=== PATIENT | male | born 1955 | race Caucasian/White ===

== ENCOUNTER 2016-06-03 11:47 | Emergency (ER) | payer BC, OTHER ==
[2016-06-03 12:03] VITALS: BP 144/87; PULSE 78; RESP 16; TEMP 97.6
--- NOTE | 2016-06-03 12:58 | ED ---
Wound/Laceration HPI - General Chief Complaint: Wound/Laceration Stated Complaint: Finger laceration-[facility] Time Seen by Provider: 06/03/16 12:53 Source: patient, RN notes reviewed Mode of arrival: ambulatory Limitations: no limitations - History of Present Illness Initial Comments: Patient is a 81-year-old male chief complaint of a right distal 5th finger laceration. Patient reports that he was working with his boss and a riya spun and cut his finger. Patient reports that the finger lacerations across the nail. He states he is unsure of his tetanus vaccination is up-to-date. He also reports that he has limited range of motion over the distal finger due to pain. Patient denies any peripheral paresthesias. Patient is right-handed. Patient denies any recent fever, chills, shortness of breath, chest pain, back pain, abdominal pain, nausea vomiting, numbness or tingling, dysuria or hematuria, constipation or diarrhea, headaches or visual changes, or any other current symptoms. - Related Data Home Medications Medication Instructions Recorded Confirmed Metoprolol Succinate (ER) [Toprol 12.5 mg PO DAILY 06/03/16 06/03/16 Xl] Allergies Allergy/AdvReac Type Severity Reaction Status Date / Time No Known Allergies Allergy Verified 06/03/16 14:14 Review of Systems ROS Statement: Those systems with pertinent positive or pertinent negative responses have been documented in the HPI. ROS Other: All systems not noted in ROS Statement are negative. Past Medical History Past Medical History: No Reported History History of Any Multi-Drug Resistant Organisms: None Reported Past Surgical History: No Surgical Hx Reported Past Psychological History: No Psychological Hx Reported Smoking Status: Never smoker Past Alcohol Use History: None Reported Past Drug Use History: None Reported General Exam - General Exam Comments Initial Comments: Patient is a 61-year-old male. He does not appear to be in any acute distress. Limitations: no limitations General appearance: alert, in no apparent distress Head exam: Present: atraumatic, normocephalic, normal inspection Eye exam: Present: normal appearance, PERRL, EOMI. Absent: scleral icterus, conjunctival injection, periorbital swelling ENT exam: Present: normal exam, normal oropharynx, mucous membranes moist, TM's normal bilaterally Neck exam: Present: normal inspection, full ROM. Absent: tenderness, meningismus, lymphadenopathy Respiratory exam: Present: normal lung sounds bilaterally. Absent: respiratory distress, wheezes, rales, rhonchi, stridor Cardiovascular Exam: Present: regular rate, normal rhythm, normal heart sounds. Absent: systolic murmur, diastolic murmur, rubs, gallop, clicks GI/Abdominal exam: Present: soft, normal bowel sounds. Absent: distended, tenderness, guarding, rebound, rigid Extremities exam: Present: normal inspection, full ROM, normal capillary refill. Absent: tenderness, pedal edema, joint swelling, calf tenderness Right Elbow exam: Present: normal inspection, full ROM. Absent: tenderness, swelling , abrasion Forearm Wrist exam: Present: normal inspection, full ROM. Absent: tenderness, swelling, abrasion Hand Wrist exam: Present: tenderness, laceration (1 cm laceration over the distal pinky going towards the nail.). Absent: normal inspection, full ROM, swelling, abrasion Neuro motor exam: Present: wrist extension intact, thumb opposition intact, thumb IP flexion intact, thumb adduction intact, fingers 2-5 abduction intact Vascular: Present: normal capillary refill Back exam: Present: normal inspection Neurological exam: Present: alert, oriented X3, CN II-XII intact Psychiatric exam: Present: normal affect, normal mood Skin exam: Present: warm, dry, intact, normal color. Absent: rash Course Vital Signs 06/03/16 12:00 Temperature 97.6 F Pulse Rate 78 Respiratory 16 Rate Blood Pressure 144/87 O2 Sat by Pulse 96 Oximetry Medical Decision Making - Medical Decision Making Denis is a 61-year-old male with chief complaint of left distal finger laceration. The laceration does extend through the nail bed. Patient hand was soaked in soapy saline solution. . Patient states x-rays reviewed and shows no evidence of any acute fractures. Patient was updated on tetanus vaccination.Patient distal edge of nail removed and 1 suture placed on the lateral aspect of the finger. I advisd patient to have nail to grow, and to ensure that it does not grow downwards toward the laceration. Patient understands treatment plan and will comply. Patient placed in a finger cot. Return paramters and infection signs discussed. - Radiology Data Radiology results: report reviewed No fracture, dislocation or radiopaque foreign body. Bone mineralization and joint space alignments are maintained. No evidence of fracture dislocation. This was read by Dr. Norman. Disposition Clinical Impression: Nailbed laceration, finger Disposition: HOME SELF-CARE Condition: Good Instructions: Finger Laceration (ED) Additional Instructions: Please return to the emergency room in 5-7 days to have sutures removed. Please leave wound covered for the first 24-48 hours and then leave open to air after that time. Please use clean soap and water to clean the suture area to prevent scabbing over the top of your sutures. Please watch for any signs of infection which may include but not limited to increased pain, swelling, redness, fever or chills. Please return to the emergency room if any signs of infection do occur. Please return to the emergency room for any other concerns or complications. Referrals: Adan Hill MD [Primary Care Provider] - 1-2 days Time of Disposition: 13:47
[2016-06-03] MEDS ORDERED: DIPH,PERTUS(ACELL)TETVAC-LF 0.5 ML VIAL IM ONE (12:59)
--- NOTE | 2016-06-03 13:21 | XR ---
Fifth digit left hand HISTORY: Trauma, laceration 3 views of the fifth digit of the left hand There is no fracture, dislocation, or radiopaque foreign body. Bone mineralization, joint spaces and alignment are maintained. IMPRESSION: No acute fracture or dislocation.
== END 2016-06-03 14:18 | disposition home or self-care (01) ==
LOC: EC 11:47
DX: S61.216A Laceration without foreign body of right little finger without damage to nail, initial encounter (principal); Z23 Encounter for immunization; Z79.899 Other long term (current) drug therapy; W31.89XA Contact with other specified machinery, initial encounter
CPT/HCPCS: 12001; 90471; 90715; 99283

== ENCOUNTER 2016-06-16 07:47 | Day surgery (SDC) | payer BC ==
[2016-06-12 08:30] VITALS: BMI 32.2
[~2016-06-16 07:47] MED LIST: LACTATED RINGERS 1,000 ML IV SCH; LIDOCAINE 1% 20 ML VIAL (10MG/ML) FOR IV START INTRADERMA PRN; PROPOFOL 10 MG/ML 20 ML VIAL IV ONE
[2016-06-16 08:39] VITALS: TEMP 97.9
[2016-06-16 09:42] VITALS: RESP 16
--- NOTE | 2016-06-16 09:47 | P.PCN ---
Date of Procedure: 06/16/16 Procedure(s) Performed: Procedure: Colonoscopy and biopsy and polypectomy. Preoperative diagnosis: Change in bowel habits. Postoperative diagnosis: 1. Sigmoid diverticulosis with nonspecific mucosal changes in the vicinity of diverticular orifices in the sigmoid raising the possibility of possible prior bout of diverticulitis. 2. Small/diminutive polyps in the transverse colon snared but no large polyps or cancer. Preparation: HalfLytely prep. Sedation: Was provided by anesthesia. Brief clinical history: The patient is a 61-year-old male who is referred for this evaluation because of recent changes in bowel habits mostly in the form loose stools. No bleeding or other complaints or anemia. The patient has had no prior colonoscopy and there is no family history of colon cancer. Procedure: With the patient on his left lateral decubitus position and after informed consent and adequate sedation, the perianal area was inspected and it did not show any fissures or fistulas. There were no masses felt on digital rectal examination. The Olympus CFQ 160L video colonoscope was then inserted in the rectum in the usual fashion and advanced to the cecum. There were 3 small/diminutive polyps in the transverse colon which were snared and retrieved I suction but there were no large polyps or cancer. There were a few diverticular orifices seen scattered in the sigmoid with some nonspecific mucosal changes in the vicinity of diverticular orifices raising the possibility of prior bout of diverticulitis. I obtained biopsies from the sigmoid then the endoscope was retroflexed in the rectum before it was withdrawn. The patient tolerated the procedure well. Plan: The patient was reassured. Will await biopsy results. He will follow up with you as planned and I anticipate repeating his colonoscopy in 5 years.
[2016-06-16 10:29] VITALS: BP 126/72; PULSE 88
== END 2016-06-16 10:29 | disposition home or self-care (01) ==
LOC: ORWHC2ENDO 07:47
DX: K51.40 Inflammatory polyps of colon without complications (principal); K52.9 Noninfective gastroenteritis and colitis, unspecified; K57.30 Diverticulosis of large intestine without perforation or abscess without bleeding; I10 Essential (primary) hypertension; Z79.899 Other long term (current) drug therapy
CPT/HCPCS: 88305; 45385; 45380; J2704

== ENCOUNTER 2017-09-14 07:17 | Emergency (ER) | payer BC ==
[2017-09-14 07:21] VITALS: BP 143/80; PULSE 73; RESP 18; TEMP 97.9
[2017-09-14] MEDS ORDERED: DIAZEPAM 5 MG/ML 2 ML INJ IM ONE (07:32)
[2017-09-14] MEDS ORDERED: KETOROLAC 60 MG/2 ML VIAL IM STA (07:32)
--- NOTE | 2017-09-14 07:34 | ED ---
General Adult HPI - General Chief complaint: Back Pain/Injury Stated complaint: Back Pain Time Seen by Provider: 09/14/17 07:20 Source: patient, RN notes reviewed Mode of arrival: wheelchair Limitations: no limitations - History of Present Illness Initial comments: This is a 62-year-old male who presents emergency Department with lower back pain. Patient states yesterday doing quite a bit of lifting and then he sat down on the edge of his bed to pull off his pants and he had significant pain in his lower back. Patient denies any radiation of the pain. Patient states the pain stays in his lower back. Patient states the left both of his legs without problem. Patient denies any numbness or weakness. Patient denies any perineum numbness. Patient denies any urinary incontinence or urinary retention. Patient states he has had this happen in the past and has resolved on its own. Patient states it was so much pain with movement he was unable to go to work. - Related Data Home Medications Medication Instructions Recorded Confirmed Lisinopril [Prinivil] 5 mg PO DAILY 09/14/17 09/14/17 Naproxen Sodium [Aleve] 220 mg PO DAILY PRN 09/14/17 09/14/17 Previous Rx's Medication Instructions Recorded Cyclobenzaprine [Flexeril] 10 mg PO TID #20 tab 09/14/17 Ibuprofen [Motrin] 600 mg PO Q6HR PRN #20 tab 09/14/17 Allergies Allergy/AdvReac Type Severity Reaction Status Date / Time No Known Allergies Allergy Verified 09/14/17 07:53 Review of Systems ROS Statement: Those systems with pertinent positive or pertinent negative responses have been documented in the HPI. ROS Other: All systems not noted in ROS Statement are negative. Past Medical History Past Medical History: No Reported History History of Any Multi-Drug Resistant Organisms: None Reported Past Surgical History: No Surgical Hx Reported Past Psychological History: No Psychological Hx Reported Smoking Status: Never smoker Past Alcohol Use History: None Reported Past Drug Use History: None Reported General Exam - General Exam Comments Initial Comments: GENERAL Patient is well-developed and well-nourished. Patient is in mild distress. EYES Patient's pupils are equal and round. Extraocular motion is intact SKIN Unremarkable NEURO The patient is alert and oriented 3. Patient has no numbness or weakness. Patient has normal straight leg raise bilaterally up to 90. Patient has normal perineum sensation. PYSCH Patient has normal interpersonal interactions. MUSCULOSKELETAL Patient's full range of motion of all 4 extremities Limitations: no limitations Course Vital Signs 09/14/17 07:19 Temperature 97.9 F Pulse Rate 73 Respiratory 18 Rate Blood Pressure 143/80 O2 Sat by Pulse 99 Oximetry Medical Decision Making - Medical Decision Making Lumbosacral spine x-ray shows no acute abnormality. I gave the patient shot of Toradol and Valium. I reevaluated the patient he was feeling better after he received his shots. Disposition Clinical Impression: Strain of lumbar region Disposition: HOME SELF-CARE Instructions: Acute Low Back Pain (ED) Additional Instructions: Patient should return to the emergency department if there is any worsening or new symptoms such as numbness or weakness or any problems with urination. Prescriptions: Cyclobenzaprine [Flexeril] 10 mg PO TID #20 tab Ibuprofen [Motrin] 600 mg PO Q6HR PRN #20 tab PRN Reason: For pain Is patient prescribed a controlled substance at d/c from ED?: No Referrals: Adan Hill MD [Primary Care Provider] - 1-2 days Time of Disposition: 08:03
--- NOTE | 2017-09-14 08:08 | XR ---
EXAMINATION TYPE: XR lumbosacral spine min 4V DATE OF EXAM: 09/14/2017 CLINICAL HISTORY: Back pain since Thursday TECHNIQUE: Frontal, lateral, and oblique images of the lumbar spine are obtained. COMPARISON: None FINDINGS: There are 5 lumbar type vertebral bodies identified. The lumbar spine shows satisfactory alignment without evidence of acute fracture or dislocation. Vertebral body heights and disk space he ights are within normal limits. The oblique images appear within normal limits. Minimal degenerativ e changes of the lumbar spine are displayed as small anterior osteophytes, minimal endplate sclerosis and facet arthropathy at L4-L5. Minimal atherosclerosis is seen of the abdominal aorta. The overlyin g soft tissue appears unremarkable. IMPRESSION: No acute fracture or dislocation is seen in the lumbar spine. Mild degenerative changes of the lumbar spine.
== END 2017-09-14 08:33 | disposition home or self-care (01) ==
LOC: EC 07:17
DX: S39.012A Strain of muscle, fascia and tendon of lower back, initial encounter (principal); Z79.899 Other long term (current) drug therapy; X50.9XXA Other and unspecified overexertion or strenuous movements or postures, initial encounter
CPT/HCPCS: 72110; 99283; 96372 ×2; J3360; J1885

== ENCOUNTER → 2023-07-17 | Outpatient (CLI) | payer MEDICARE ==
--- NOTE | 2023-07-18 12:47 | CA ---
Transthoracic Echo Report Name: Hugh Echevarria Age: 68 Gender: M : 1955 Exam Date: 07/17/2023 13:18 Exam Location: [facility] Ht (in): 71 Wt (lb): 221 Ordering Physician: Yonas Hill MD Attending/Referring Phys: Yonas Hill MD Complaint Evaluation Supervisor Charmaine Cladwell RDCS Procedure CPT: Indications: I42.9 cardiomyopathy Cardiac Hx: Technical Quality: Fair Contrast 1: Total Dose (mL): Contrast 2: Total Dose (mL): MEASUREMENTS (Male / Female) Normal Values 2D ECHO LV Diastolic Diameter PLAX 4.3 cm 4.2 - 5.9 / 3.9 - 5.3 cm LV Systolic Diameter PLAX 2.4 cm IVS Diastolic Thickness 1.2 cm 0.6 - 1.0 / 0.6 - 0.9 cm LVPW Diastolic Thickness 1.3 cm 0.6 - 1.0 / 0.6 - 0.9 cm LV Relative Wall Thickness 0.6 RV Internal Dim ED PLAX 4.1 cm LA Volume 89.2 cm??? 18 - 58 / 22 - 52 cm??? LA Volume Index 39.3 cm???/m??? 16 - 28 cm???/m??? M-MODE Aortic Root Diameter MM 3.2 cm LA Systolic Diameter MM 5.5 cm LA Ao Ratio MM 1.7 AV Cusp Separation MM 2.3 cm DOPPLER AV Peak Velocity 125.8 cm/s AV Peak Gradient 6.3 mmHg AV Mean Velocity 85.8 cm/s AV Mean Gradient 3.4 mmHg AV Velocity Time Integral 24.5 cm LVOT Peak Velocity 125.3 cm/s LVOT Peak Gradient 6.3 mmHg LVOT Velocity Time Integral 23.9 cm MV Peak Velocity 131.8 cm/s MV Peak Gradient 7.0 mmHg MV Mean Velocity 78.8 cm/s MV Mean Gradient 2.9 mmHg MV Velocity Time Integral 39.0 cm MV Area PHT 3.6 cm??? MR Peak Velocity 538.7 cm/s MR Peak Gradient 116.1 mmHg Mitral E Point Velocity 111.8 cm/s Mitral A Point Velocity 114.3 cm/s Mitral E to A Ratio 1.0 MV Deceleration Time 213.6 ms MV E' Velocity 9.2 cm/s Mitral E to MV E' Ratio 12.1 TR Peak Velocity 254.6 cm/s TR Peak Gradient 25.9 mmHg Right Atrial Pressure 15.0 mmHg Pulmonary Artery Systolic Pressu 40.9 mmHg Right Ventricular Systolic Press 40.9 mmHg FINDINGS Left Ventricle Mildly increased left ventricular wall thickness. Left ventricular cavity size normal. Normal left ventricular systolic function with no obvious regional wall motion abnormalities. Left ventricular ejection fraction is estimated at 55-60 %. Grade 1 diastolic dysfunction. Right Ventricle Right ventricular dilatation. Mild pulmonary hypertension. Right Atrium Normal right atrial size. Left Atrium Moderately increased left atrial volume. Moderately increased left atrial area. Mitral Valve Structurally normal mitral valve. [id number] mitral regurgitation. Centrally directed mitral regurgitation jet. Aortic Valve Trileaflet aortic valve. No aortic valve stenosis or regurgitation. Tricuspid Valve Structurally normal tricuspid valve. Mild tricuspid regurgitation. Pulmonic Valve Structurally normal pulmonic valve. Pericardium No pericardial effusion. Aorta Normal size aortic root and proximal ascending aorta. CONCLUSIONS Normal LV function Moderate left atrial enlargement Moderate to severe mitral regurgitation Previewed by: Dr. Juancho Zuñiga MD (Electronically Signed) Final Date: 18 July 2023 12:47
== END | disposition home or self-care (01) ==
LOC: RADECHMAIN 12:52
PROVIDERS: ATTEND Family Medicine
DX: I34.0 Nonrheumatic mitral (valve) insufficiency (principal); I42.9 Cardiomyopathy, unspecified; I51.7 Cardiomegaly
CPT/HCPCS: 93306

== ENCOUNTER 2024-09-03 09:45 | Emergency (ER) | payer MEDICARE ==
[2024-09-03 10:07] VITALS: TEMP 97.9
[2024-09-03] MEDS: KETOROLAC 15 MG/ML 1 ML VIAL IM STA (10:25)
[2024-09-03] MEDS: DEXAMETHASONE SOD PHOSPHATE 10 MG/ML 1 ML VIAL IM STA (10:25)
[2024-09-03] MEDS: LIDOCAINE 4% PATCH TOPICAL ONE (10:29)
--- NOTE | 2024-09-03 10:45 | XR ---
EXAMINATION TYPE: XR lumbar spine 2 or 3V DATE OF EXAM: 09/03/2024 CLINICAL INDICATION: Male, 69 years old with history of Pain, pain TECHNIQUE: Frontal and lateral images of the lumbar spine are obtained. COMPARISON: Lumbar spine x-ray 2012 FINDINGS: There are 5 lumbar type vertebral bodies redemonstrated. The lumbar spine shows slight gr rohit 1 retrolisthesis L4 on L5 without evidence of acute fracture or dislocation. Vertebral body heigh ts and disk space heights are within normal limits. Mild overlying arterial vascular calcification is redemonstrated. IMPRESSION: As above. [facility], , 09/03/2024 10:43 AM
--- NOTE | 2024-09-03 10:57 | ED ---
Back Pain HPI - General Chief Complaint: Back Pain/Injury Stated Complaint: back pain Time Seen by Provider: 09/03/24 10:10 Source: patient, RN notes reviewed Mode of arrival: ambulatory Limitations: no limitations - History of Present Illness Initial Comments: This is a 69-year-old male who presents to the emergency department for right lower back pain. States that it started a couple of days ago. He has had similar problems in the past that have been attributed to musculoskeletal issues. However, states that he started riding his motorcycle again and it started back up. Denies any loss of bowel/bladder control or saddle anesthesia. He has some pain radiating down the leg. MD Complaint: back pain - Related Data Home Medications Medication Instructions Recorded Confirmed Naproxen Sodium [Aleve] 220 mg PO DAILY PRN 09/14/17 09/14/17 lisinopriL [Prinivil] 5 mg PO DAILY 09/14/17 09/14/17 Previous Rx's Medication Instructions Recorded Cyclobenzaprine [Flexeril] 10 mg PO TID #20 tab 09/14/17 Ibuprofen [Motrin] 600 mg PO Q6HR PRN #20 tab 09/14/17 Ketorolac [Toradol] 10 mg PO Q6HR PRN #15 tab 09/03/24 Lidocaine 5% Patch [Lidoderm 5% 1 patch TOPICAL DAILY PRN #30 patch 09/03/24 Patch] predniSONE 50 mg PO DAILY 5 Days #5 tab 09/03/24 Allergies Allergy/AdvReac Type Severity Reaction Status Date / Time No Known Allergies Allergy Verified 09/03/24 10:07 Review of Systems ROS Statement: Those systems with pertinent positive or pertinent negative responses have been documented in the HPI. ROS Other: All systems not noted in ROS Statement are negative. Past Medical History Past Medical History: Hypertension History of Any Multi-Drug Resistant Organisms: None Reported Past Surgical History: No Surgical Hx Reported Past Psychological History: No Psychological Hx Reported Smoking Status: Former smoker Past Alcohol Use History: None Reported Past Drug Use History: None Reported General Exam Limitations: no limitations General appearance: alert, in no apparent distress Head exam: Present: atraumatic, normocephalic, normal inspection Respiratory exam: Present: normal lung sounds bilaterally. Absent: respiratory distress, wheezes, rales, rhonchi, stridor Cardiovascular Exam: Present: regular rate, normal rhythm Back exam: Present: other (Tenderness to palpation over the right lower back) Neurological exam: Present: alert, oriented X3, CN II-XII intact Psychiatric exam: Present: normal affect, normal mood Skin exam: Present: warm, dry, intact, normal color. Absent: rash Course Vital Signs 09/03/24 09/03/24 10:03 11:20 Temperature 97.9 F 97.9 F Pulse Rate 69 76 Respiratory 18 20 Rate Blood Pressure 131/81 121/73 O2 Sat by Pulse 99 95 Oximetry Medical Decision Making - Medical Decision Making This is a 69-year-old male who presents to the emergency department for back pain. Was pt. sent in by a medical professional or institution? @ -No Did you speak to anyone other than the patient for history? @ -No Did you review nursing and triage notes? @ -Yes, and I agree, it is accurate with regards to the patient's symptoms. Were old charts reviewed? @ -No Differential Diagnosis? @ -Differential Back Pain: Strain, zoster, cauda equina syndrome, epidural abscess, vertebral osteomyelitis, discitis, fracture, subluxation, disc herniation, DJD, spinal stenosis, dissection, AAA, pancreatitis, peptic ulcer disease, pyelonephritis, kidney stone, this is not meant to be an all-inclusive list. EKG interpreted by me (3pts min.)? @ -Not obtained X-rays interpreted by me (1pt min.)? @ -X-ray of the lumbar spine obtained. My interpretation identifies no acute fractures. CT interpreted by me (1pt min.)? @ -Not obtained U/S interpreted by me (1pt. min.)? @ -Not obtained What testing was considered but not performed? (CT, X-rays, U/S, labs)? Why? @ -None What meds were considered but not given? Why? @ -None Did you discuss the management of the patient with other professionals? @ -No Did you reconcile home meds? @ -No Was smoking cessation discussed for >3mins.? @ -No Was critical care preformed (if so, how long)? @ -No Were there social determinants of health that impacted care today? How? (Homelessness, low income, unemployed, alcoholism, drug addiction, transportation, low edu. Level, literacy, decrease access to med. care, f[facility], rehab)? @ -No Was there de-escalation of care discussed even if they declined? (Discuss DNR or withdrawal of care, Hospice)? @ -No What co-morbidities impacted this encounter? (DM, HTN, Smoking, COPD, CAD, Cancer, CVA, Hep., AIDS, mental health diagnosis, sleep apnea, morbid obesity)? @ -None Was patient admitted / discharged? @ -Discharged. X-ray of the lumbar spine obtained revealing slight grade 1 retrolithiasis without other acute process. Symptoms likely related to a lumbar strain. Pain treated in the emergency department. Prescription for 5-day course of prednisone provided with dosing instructions reviewed along with Toradol and lidocaine patches. He does have have muscle relaxers he can take at home if needed as well. Patient discharged home in stable condition. Case discussed with ED attending Dr. Deleon. Return precautions reviewed in depth, the patient is instructed to return to the emergency department with any new, worsening, or concerning symptoms. Patient verbalized understanding. Undiagnosed new problem with uncertain prognosis? @ -None Drug Therapy requiring intensive monitoring for toxicity (Heparin, Nitro, Insulin, Cardizem)? @ -None Were any procedures done? @ -None Diagnosis/symptom? @ -Lumbar strain Acute, or Chronic, or Acute on Chronic? @ -Acute Uncomplicated (without systemic symptoms) or Complicated (systemic symptoms)? @ -Uncomplicated Side effects of treatment? @ -None Exacerbation, Progression, or Severe Exacerbation] @ -Not applicable Poses a threat to life or bodily function? @ -No - Radiology Data Radiology results: report reviewed, image reviewed Disposition Clinical Impression: Lumbar back sprain, Retrolisthesis of vertebrae Disposition: HOME SELF-CARE Instructions (If sedation given, give patient instructions): Low Back Strain (ED), Acute Low Back Pain (ED) Additional Instructions: Return to the emergency department with any new, worsening, or concerning symptoms. Take the prednisone daily for 5 days. Take the Toradol with Tylenol as needed for pain relief. If you choose to take the Toradol, do not take any other anti-inflammatories such as ibuprofen, take one or the other. You can also apply the lidocaine patches daily. Follow up with your primary care provider in 1-2 days. Prescriptions: Lidocaine 5% Patch [Lidoderm 5% Patch] 1 patch TOPICAL DAILY PRN #30 patch PRN Reason: Pain predniSONE 50 mg PO DAILY 5 Days #5 tab Ketorolac [Toradol] 10 mg PO Q6HR PRN #15 tab PRN Reason: Pain Is patient prescribed a controlled substance at d/c from ED?: No Referrals: Yonas Hill MD [Primary Care Provider] - 1-2 days Time of Disposition: 11:07
[2024-09-03 11:21] VITALS: BP 121/73; PULSE 76; RESP 20
== END 2024-09-03 11:21 | disposition home or self-care (01) ==
LOC: EC 09:45
DX: S33.5XXA Sprain of ligaments of lumbar spine, initial encounter (principal); S39.012A Strain of muscle, fascia and tendon of lower back, initial encounter; M43.16 Spondylolisthesis, lumbar region; Z87.891 Personal history of nicotine dependence; X58.XXXA Exposure to other specified factors, initial encounter
CPT/HCPCS: 72100; 99283; 96372 ×2; J1100; J1885

== ENCOUNTER 2024-10-08 08:51 | Emergency (ER) | payer MEDICARE ==
[2024-10-08 09:02] VITALS: BP 145/70; PULSE 70; RESP 18; TEMP 97.9
--- NOTE | 2024-10-08 09:25 | ED ---
General Adult HPI - General Chief complaint: Back Pain/Injury Stated complaint: Back Pain Time Seen by Provider: 10/08/24 09:03 Source: patient, RN notes reviewed, old records reviewed Mode of arrival: ambulatory Limitations: no limitations - History of Present Illness Initial comments: 69-year-old male with acute on chronic back pain. Patient states he has had low back issues for many years. He was seen here 1 month ago and states he received steroid which did significantly improve his pain. He denies bowel or bladder incontinence. He denies pain numbness or tingling to the lower extremities. Denies abdominal pain chest pain or fever. - Related Data Home Medications Medication Instructions Recorded Confirmed Naproxen Sodium [Aleve] 220 mg PO DAILY PRN 09/14/17 09/14/17 lisinopriL [Prinivil] 5 mg PO DAILY 09/14/17 09/14/17 Previous Rx's Medication Instructions Recorded Cyclobenzaprine [Flexeril] 10 mg PO TID #20 tab 09/14/17 Ibuprofen [Motrin] 600 mg PO Q6HR PRN #20 tab 09/14/17 Ketorolac [Toradol] 10 mg PO Q6HR PRN #15 tab 09/03/24 Lidocaine 5% Patch [Lidoderm 5% 1 patch TOPICAL DAILY PRN #30 patch 09/03/24 Patch] predniSONE 50 mg PO DAILY 5 Days #5 tab 09/03/24 methylPREDNISolone Dose Pack 4 mg PO DIRECTED #21 packet 10/08/24 [Medrol Dose Pack] Allergies Allergy/AdvReac Type Severity Reaction Status Date / Time No Known Allergies Allergy Verified 10/08/24 09:02 Review of Systems ROS Statement: Those systems with pertinent positive or pertinent negative responses have been documented in the HPI. ROS Other: All systems not noted in ROS Statement are negative. Past Medical History Past Medical History: Hypertension History of Any Multi-Drug Resistant Organisms: None Reported Past Surgical History: No Surgical Hx Reported Past Psychological History: No Psychological Hx Reported Smoking Status: Former smoker Past Alcohol Use History: None Reported Past Drug Use History: None Reported General Exam Limitations: no limitations General appearance: alert, in no apparent distress Head exam: Present: atraumatic, normocephalic Eye exam: Present: normal appearance, PERRL ENT exam: Present: normal exam Neck exam: Present: normal inspection. Absent: tenderness, meningismus Respiratory exam: Present: normal lung sounds bilaterally. Absent: respiratory distress, wheezes Cardiovascular Exam: Present: regular rate, normal rhythm GI/Abdominal exam: Present: soft. Absent: distended, tenderness, guarding Extremities exam: Present: normal inspection, normal capillary refill. Absent: pedal edema, calf tenderness Back exam: Present: paraspinal tenderness Neurological exam: Present: alert, oriented X3, CN II-XII intact. Absent: motor sensory deficit Psychiatric exam: Present: normal affect, normal mood Skin exam: Present: warm, dry, intact. Absent: cyanosis, diaphoretic Course Vital Signs 10/08/24 09:00 Temperature 97.9 F Pulse Rate 70 Respiratory 18 Rate Blood Pressure 145/70 O2 Sat by Pulse 98 Oximetry Medical Decision Making - Medical Decision Making Was pt. sent in by a medical professional or institution (, PA, TAX PREPARER, urgent care, hospital, or skilled nursing...) When possible be specific @ -No Did you speak to anyone other than the patient for history (EMS, parent, family, police, friend...)? What history was obtained from this source @ -No Did you review nursing and triage notes (agree or disagree)? Why? @ -I reviewed and agree with nursing and triage notes Were old charts reviewed (outside hosp., previous admission, EMS record, old EKG, old radiological studies, urgent care reports/EKG's, skilled nursing records)? Report findings @ -No old charts were reviewed Differential Back Pain: Strain, zoster, cauda equina syndrome, epidural abscess, vertebral osteomyelitis, discitis, fracture, subluxation, disc herniation, DJD, spinal stenosis, dissection, AAA, pancreatitis, peptic ulcer disease, pyelonephritis, kidney stone, this is not meant to be an all-inclusive list. EKG interpreted by me (3pts min.). @ -As above X-rays interpreted by me (1pt min.). @ -None done CT interpreted by me (1pt min.). @ -None done U/S interpreted by me (1pt. min.). @ -None done What testing was considered but not performed or refused? (CT, X-rays, U/S, labs)? Why? @ -None What meds were considered but not given or refused? Why? @ -None Did you discuss the management of the patient with other professionals (professionals i.e. , PA, TAX PREPARER, lab, RT, psych nurse, manager social, route specialist, teacher, environmental compliance officer, director of casework department)? Give summary @ -No Was smoking cessation discussed for >3mins.? @ -No Was critical care preformed (if so, how long)? @ -No Were there social determinants of health that impacted care today? How? (Jennifer elessness, low income, unemployed, alcoholism, drug addiction, transportation, low edu. Level, literacy, decrease access to med. care, half-way, rehab)? @ -No Was there de-escalation of care discussed even if they declined (Discuss DNR or withdrawal of care, Hospice)? DNR status @ -No What co-morbidities impacted this encounter? (DM, HTN, Smoking, COPD, CAD, Cancer, CVA, ARF, Chemo, Hep., AIDS, mental health diagnosis, sleep apnea, morbid obesity)? @ -Chronic back pain Was patient admitted / discharged? Hospital course, mention meds given and route, prescriptions, significant lab abnormalities, going to OR and other pertinent info. @ -69-year-old male with acute on chronic back pain. No red flag symptoms. Patient well-appearing. Patient had not seen orthopedic surgery given the recurrence of this I do recommend he follows with orthospine. He states that previously steroids helped significantly. He is given a shot of Decadron and put on a Medrol Dosepak. Stable for discharge. Undiagnosed new problem with uncertain prognosis? @ -No Drug Therapy requiring intensive monitoring for toxicity (Heparin, Nitro, Insulin, Cardizem)? @ -No Were any procedures done? @ -No Diagnosis/symptom? @ -Back pain Acute, or Chronic, or Acute on Chronic? @ -[Acute on chronic Uncomplicated (without systemic symptoms) or Complicated (systemic symptoms)? @ -Default Side effects of treatment? @ -No Exacerbation, Progression, or Severe Exacerbation? @ -No Poses a threat to life or bodily function? How? (Chest pain, [place], [place], pneumonia, PE, COPD, DKA, ARF, appy, cholecystitis, CVA, Diverticulitis, Homicidal, Suicidal, threat to staff... and all critical care pts) @ -No Disposition Clinical Impression: Strain of lumbar region Disposition: HOME SELF-CARE Condition: Fair Instructions (If sedation given, give patient instructions): Acute Low Back Pain (ED) Prescriptions: methylPREDNISolone Dose Pack [Medrol Dose Pack] 4 mg PO DIRECTED #21 packet Is patient prescribed a controlled substance at d/c from ED?: No Referrals: Yonas Hill MD [Primary Care Provider] - 1-2 days Vladimir Orozco DO [Doctor of Osteopathic Medicine] - 1-2 days Time of Disposition: 09:40
[2024-10-08] MEDS: DEXAMETHASONE SOD PHOSPHATE 10 MG/ML 1 ML VIAL IM STA (09:50)
== END 2024-10-08 09:50 | disposition home or self-care (01) ==
LOC: EC 08:51
DX: S39.012A Strain of muscle, fascia and tendon of lower back, initial encounter (principal); Z87.891 Personal history of nicotine dependence; X58.XXXA Exposure to other specified factors, initial encounter
CPT/HCPCS: 99283; 96372; J1100

== ENCOUNTER 2024-10-15 08:37 | Emergency (ER) | payer MEDICARE ==
--- NOTE | 2024-10-15 09:19 | ED ---
URI HPI - General Chief Complaint: Upper Respiratory Infection Stated Complaint: ENT Time Seen by Provider: 10/15/24 08:41 Source: patient, RN notes reviewed Mode of arrival: ambulatory Limitations: no limitations - History of Present Illness Initial Comments: This is a 69-year-old male who presents to the emergency department for coughing and congestion. States that it started 2 days ago. Cough is mildly productive. Also reports right ear pain. Denies any chest pain or shortness of breath. Unsure if he has had any fevers. Denies any sick contacts. He did try [id number] nasal spray and cough medication without any relief. - Related Data Home Medications Medication Instructions Recorded Confirmed Naproxen Sodium [Aleve] 220 mg PO DAILY PRN 09/14/17 09/14/17 lisinopriL [Prinivil] 5 mg PO DAILY 09/14/17 09/14/17 Previous Rx's Medication Instructions Recorded Cyclobenzaprine [Flexeril] 10 mg PO TID #20 tab 09/14/17 Ibuprofen [Motrin] 600 mg PO Q6HR PRN #20 tab 09/14/17 Ketorolac [Toradol] 10 mg PO Q6HR PRN #15 tab 09/03/24 Lidocaine 5% Patch [Lidoderm 5% 1 patch TOPICAL DAILY PRN #30 patch 09/03/24 Patch] predniSONE 50 mg PO DAILY 5 Days #5 tab 09/03/24 methylPREDNISolone Dose Pack 4 mg PO DIRECTED #21 packet 10/08/24 [Medrol Dose Pack] Benzonatate [Tessalon Perle] 200 mg PO TID PRN #30 capsule 10/15/24 Fluticasone Nasal [place] [Flonase 2 spray EA NOSTRIL DAILY #16 gm 10/15/24 Nasal [place]] Nirmatrelvir/Ritonavir [Paxlovid 1 pack PO BID 5 Days #30 tab 10/15/24 300-100 mg Dose Pack] Allergies Allergy/AdvReac Type Severity Reaction Status Date / Time No Known Allergies Allergy Verified 10/15/24 08:41 Review of Systems ROS Statement: Those systems with pertinent positive or pertinent negative responses have been documented in the HPI. ROS Other: All systems not noted in ROS Statement are negative. Past Medical History Past Medical History: Hypertension History of Any Multi-Drug Resistant Organisms: None Reported Past Surgical History: No Surgical Hx Reported Past Psychological History: No Psychological Hx Reported Smoking Status: Former smoker Past Alcohol Use History: None Reported Past Drug Use History: None Reported General Exam Limitations: no limitations General appearance: alert, in no apparent distress Head exam: Present: atraumatic, normocephalic, normal inspection ENT exam: Present: TM's normal bilaterally, normal external ear exam Respiratory exam: Present: normal lung sounds bilaterally. Absent: respiratory distress, wheezes, rales, rhonchi, stridor Cardiovascular Exam: Present: regular rate, normal rhythm Neurological exam: Present: alert, oriented X3, CN II-XII intact Psychiatric exam: Present: normal affect, normal mood Skin exam: Present: warm, dry, intact, normal color. Absent: rash Course Vital Signs 10/15/24 10/15/24 08:39 10:10 Temperature 98.4 F 98.6 F Pulse Rate 73 76 Respiratory 20 20 Rate Blood Pressure 141/73 136/80 O2 Sat by Pulse 99 99 Oximetry Medical Decision Making - Medical Decision Making This is a 69-year-old male who presents to the emergency department for coughing and congestion. Was pt. sent in by a medical professional or institution? @ -No Did you speak to anyone other than the patient for history? @ -No Did you review nursing and triage notes? @ -Yes, and I agree, it is accurate with regards to the patient's symptoms. Were old charts reviewed? @ -No Differential Diagnosis? @ -Differential Cough: Influenza, Covid, RSV, croup, allergic rhinitis, GERD, pneumonia, bronchitis, COPD, viral pharyngitis, streptococcal pharyngitis, this is not meant to be an all-inclusive list. EKG interpreted by me (3pts min.)? @ -Not obtained X-rays interpreted by me (1pt min.)? @ -Chest x-ray obtained, my interpretation identifies no localized consolidations or infiltrates. CT interpreted by me (1pt min.)? @ -Not obtained U/S interpreted by me (1pt. min.)? @ -Not obtain What testing was considered but not performed? (CT, X-rays, U/S, labs)? Why? @ -None What meds were considered but not given? Why? @ -None Did you discuss the management of the patient with other professionals? @ -No Did you reconcile home meds? @ -No Was smoking cessation discussed for >3mins.? @ -No Was critical care preformed (if so, how long)? @ -No Were there social determinants of health that impacted care today? How? (Homelessness, low income, unemployed, alcoholism, drug addiction, transportation, low edu. Level, literacy, decrease access to med. care, intermediate, rehab)? @ -No Was there de-escalation of care discussed even if they declined? (Discuss DNR or withdrawal of care, Hospice)? @ -No What co-morbidities impacted this encounter? (DM, HTN, Smoking, COPD, CAD, Cancer, CVA, Hep., AIDS, mental health diagnosis, sleep apnea, morbid obesity)? @ -HTN Was patient admitted / discharged? @ -Discharged. Patient positive for COVID-19. Influenza and RSV testing negative. Chest x-ray reveals no acute process. Discussed the option of Paxlovid with the patient and he requested to proceed. This was prescribed along with Tessalon Perles and Flonase nasal spray. Also advised [id number] Sudafed to help with his congestion. Patient discharged home in stable condition. Case discussed with ED attending Dr. Bhat. Return precautions reviewed in depth, the patient is instructed to return to the emergency department with any new, worsening, or concerning symptoms. Patient verbalized understanding. Undiagnosed new problem with uncertain prognosis? @ -None Drug Therapy requiring intensive monitoring for toxicity (Heparin, Nitro, Insulin, Cardizem)? @ -None Were any procedures done? @ -None Diagnosis/symptom? @ -COVID-19 Acute, or Chronic, or Acute on Chronic? @ -Acute Uncomplicated (without systemic symptoms) or Complicated (systemic symptoms)? @ -Uncomplicated Side effects of treatment? @ -None Exacerbation, Progression, or Severe Exacerbation] @ -Not applicable Poses a threat to life or bodily function? @ -No - Lab Data Lab Results 10/15/24 Range/Units 08:55 Influenza Type A (PCR) Not Detected (Not Detectd) Influenza Type B (PCR) Not Detected (Not Detectd) RSV (PCR) Not Detected (Not Detectd) SARS-CoV-2 (PCR) Detected A (Not Detectd) - Radiology Data Radiology results: report reviewed, image reviewed Disposition Clinical Impression: COVID-19 Disposition: HOME SELF-CARE Instructions (If sedation given, give patient instructions): COVID-19 (Coronavirus Disease 2019) (ED), How to Recover from COVID-19 at Home (ED) Additional Instructions: Return to the emergency department with any new, worsening, or concerning symptoms. Take the Paxlovid as prescribed for 5 days. You can take the Tessalon Perles up to 3 times daily for the cough. Begin using the Flonase nasal spray as 2 sprays in each nostril daily. This will take a couple of days to work, but should start to help with your congestion and ear pain. A dditionally, you can try [id number] decongestants like Sudafed to help with your congestion. Prescriptions: Fluticasone Nasal [place] [Flonase Nasal [place]] 2 spray EA NOSTRIL DAILY #16 gm Nirmatrelvir/Ritonavir [Paxlovid 300-100 mg Dose Pack] 1 pack PO BID 5 Days #30 tab Benzonatate [Tessalon Perle] 200 mg PO TID PRN #30 capsule PRN Reason: Cough Is patient prescribed a controlled substance at d/c from ED?: No Referrals: Yonas Hill MD [Primary Care Provider] - 1-2 days Time of Disposition: 10:01
[2024-10-15] MEDS: PSEUDOEPHEDRINE 12HR 120 MG TABLET.ER PO STA (09:24)
--- NOTE | 2024-10-15 09:29 | XR ---
EXAMINATION TYPE: XR chest 2V DATE OF EXAM: 10/15/2024 9:03 AM COMPARISON: None CLINICAL INDICATION: Male, 69 years old with history of Cough; 10/15/2024 TECHNIQUE: XR chest 2V Frontal and lateral views of the chest. FINDINGS: Lungs/Pleura: There is no evidence of pleural effusion, focal consolidation, or pneumothorax. Pulmonary vascularity: Unremarkable. Heart/mediastinum: Cardiomediastinal silhouette is unremarkable. Musculoskeletal: No acute osseous pathology. IMPRESSION: No acute cardiopulmonary disease/process. [facility], , 10/15/2024 9:27 AM
[2024-10-15 09:41] LABS: RSV Not Detected (Not Detectd)
[2024-10-15 10:17] VITALS: BP 136/80; PULSE 76; RESP 20; TEMP 98.6
== END 2024-10-15 10:11 | disposition home or self-care (01) ==
LOC: EC 08:37
DX: U07.1 COVID-19 (principal); I10 Essential (primary) hypertension; Z87.891 Personal history of nicotine dependence
CPT/HCPCS: 71046; 87636; 99283

== ENCOUNTER 2024-10-21 22:40 | Emergency (ER) | payer MEDICARE ==
[2024-10-21] MEDS: ASPIRIN 81 MG PO STA (23:16)
--- NOTE | 2024-10-21 23:33 | ED ---
General Adult HPI - General Chief complaint: Chest Pain Stated complaint: chest pain Time Seen by Provider: 10/21/24 22:55 Source: patient, RN notes reviewed, old records reviewed Mode of arrival: ambulatory Limitations: no limitations - History of Present Illness Initial comments: 69-year-old male who presents emergency department for chest pain. Patient has a history of heart murmur, hypertension. Follows up with Dr. Wright outpatient. States that he woke up at approximately 9:30 PM and had a pinching sensation over his left chest that was lasting for a fleeting moment. It reoccurred 1 time. Became concerned and wanted to be reevaluated. Currently has no pain. No known palliative or provocative factors. Denies any shortness of breath with it. Recently had a full stress test workup outpatient which was negative according to the patient. No history of cardiac stents or CAD to his knowledge. Presents for further evaluation at this time.Denies any radiation of the pain when it was present. Denies any associative diaphoresis or nausea with it. The pain lasted moments when it was present. - Related Data Home Medications Medication Instructions Recorded Confirmed Naproxen Sodium [Aleve] 220 mg PO DAILY PRN 09/14/17 09/14/17 lisinopriL [Prinivil] 5 mg PO DAILY 09/14/17 09/14/17 Previous Rx's Medication Instructions Recorded Cyclobenzaprine [Flexeril] 10 mg PO TID #20 tab 09/14/17 Ibuprofen [Motrin] 600 mg PO Q6HR PRN #20 tab 09/14/17 Ketorolac [Toradol] 10 mg PO Q6HR PRN #15 tab 09/03/24 Lidocaine 5% Patch [Lidoderm 5% 1 patch TOPICAL DAILY PRN #30 patch 09/03/24 Patch] predniSONE 50 mg PO DAILY 5 Days #5 tab 09/03/24 methylPREDNISolone Dose Pack 4 mg PO DIRECTED #21 packet 10/08/24 [Medrol Dose Pack] Benzonatate [Tessalon Perle] 200 mg PO TID PRN #30 capsule 10/15/24 Fluticasone Nasal [place] [Flonase 2 spray EA NOSTRIL DAILY #16 gm 10/15/24 Nasal [place]] Nirmatrelvir/Ritonavir [Paxlovid 1 pack PO BID 5 Days #30 tab 10/15/24 300-100 mg Dose Pack] Allergies Allergy/AdvReac Type Severity Reaction Status Date / Time No Known Allergies Allergy Verified 10/21/24 22:47 Review of Systems ROS Statement: Those systems with pertinent positive or pertinent negative responses have been documented in the HPI. Review of Systems: CONST: Denies fever EYES: Denies blurry vision ENT: Denies nasal congestion C/V: Denies current chest pain RESP: Denies shortness of breath GI: Denies abdominal pain : Denies dysuria SKIN: Denies rash. MSK: Denies joint pain. NEURO: Denies headache ROS Other: All systems not noted in ROS Statement are negative. Past Medical History Past Medical History: Hypertension History of Any Multi-Drug Resistant Organisms: None Reported Past Surgical History: No Surgical Hx Reported Past Psychological History: No Psychological Hx Reported Smoking Status: Former smoker Past Alcohol Use History: None Reported Past Drug Use History: None Reported General Exam - General Exam Comments Initial Comments: General: Appears in no acute distress. HEAD: Normal with no signs of head trauma. EYES: PERRLA, EOMI, conjunctiva normal, no discharge. ENT: Hearing grossly intact, normal oropharynx. RESPIRATORY: Clear breath sounds bilaterally. No wheezes, rales, or rhonchi. C/V: Regular rate and rhythm. S1 and S2 auscultated, no edema, peripheral pulses 2+ and intact throughout ABD: Abd is soft, nontender, nondistended EXT: Normal range of motion, no obvious deformity SKIN: No rashes or lesions observed on exposed skin. NEURO: Alert and oriented x 4. Cranial nerves II-XII intact. No focal sensory or strength deficits. Limitations: no limitations Course Vital Signs 10/21/24 10/21/24 10/22/24 22:44 23:47 01:00 Temperature 97.9 F Pulse Rate 62 66 57 L Respiratory 18 16 22 Rate Blood Pressure 156/77 155/74 134/57 O2 Sat by Pulse 99 99 97 Oximetry 10/22/24 02:00 Temperature Pulse Rate 58 L Respiratory 17 Rate Blood Pressure 132/65 O2 Sat by Pulse 97 Oximetry Medical Decision Making - Medical Decision Making Was pt. sent in by a medical professional or institution (, PA, WAITSTAFF CAPTAIN, urgent care, hospital, or [facility]...) When possible be specific @ -No Did you speak to anyone other than the patient for history (EMS, parent, family, police, friend...)? What history was obtained from this source @ -No Did you review nursing and triage notes (agree or disagree)? Why? @ -I reviewed and agree with nursing and triage notes Were old charts reviewed (outside hosp., previous admission, EMS record, old EKG, old radiological studies, urgent care reports/EKG's, [facility] records)? Report findings @ -Reviewed echo from July 2023 which showed moderate to severe mitral re gurgitation with corresponding left atrial enlargement. No other acute findings. Differential Diagnosis (chest pain, altered mental status, abdominal pain women, abdominal pain men, vaginal bleeding, weakness, fever, dyspnea, syncope, headache, dizziness, GI bleed, back pain, seizure, CVA, palpatations, mental health, musculoskeletal)? @ -Differential Chest Pain: Stable Angina, Unstable Angina, STEMI, NSTEMI Aortic Dissection, Pneumothorax, Musculoskeletal, Esophageal Spasm GERD, Cholecystitis, Pancreatitis, Zoster, this is not meant to be an all-inclusive list. EKG interpreted by me (3pts min.). @ -As above X-rays interpreted by me (1pt min.). @ -Chest x-ray shows no obvious acute cardiopulmonary process. CT interpreted by me (1pt min.). @ -None done U/S interpreted by me (1pt. min.). @ -None done What testing was considered but not performed or refused? (CT, X-rays, U/S, labs)? Why? @ -None What meds were considered but not given or refused? Why? @ -None Did you discuss the management of the patient with other professionals (professionals i.e. , PA, WAITSTAFF CAPTAIN, lab, RT, psych nurse, social media sr strategy manager, transformer inspector, teacher, aboriginal liaison officer, pillowcase maker)? Give summary @ -No Was smoking cessation discussed for >3mins.? @ -No Was critical care preformed (if so, how long)? @ -No Were there social determinants of health that impacted care today? How? (Homelessness, low income, unemployed, alcoholism, drug addiction, transportation, low edu. Level, literacy, decrease access to med. care, long term, rehab)? @ -No Was there de-escalation of care discussed even if they declined (Discuss DNR or withdrawal of care, Hospice)? DNR status @ -No What co-morbidities impacted this encounter? (DM, HTN, Smoking, COPD, CAD, Cancer, CVA, ARF, Chemo, Hep., AIDS, mental health diagnosis, sleep apnea, morbid obesity)? @ -None Was patient admitted / discharged? Hospital course, mention meds given and route, prescriptions, significant lab abnormalities, going to OR and other pertinent info. @ -Patient presents with chest pain. Currently has no pain but had 2 very brief episodes of a pinching sensation over her this left chest prior to arrival. No history of CAD. Recent stress testing were within normal limits per patient. We do not have access to the results. Discussed with the patient we will obtain cardiac workup. He will be given 3 to 24 mg of aspirin. Vitals are within acceptable limits. Patient was in agreement this plan. EKG x 2 shows no signs of acute ischemia.Chest x-ray unremarkable. Laboratory studies unremarkable including undetectable troponin. On reevaluation, patient remains asymptomatic. Has not had any symptoms since being in the emergency department. Discussed options for disposition for the patient and we both jointly agreed to obtain second troponin. Patient would like to avoid discharge home but he is willing to stay for 3-hour troponin. 3-hour troponin returned undetectable. Throughout his stay he remained asymptomatic. He would like to go home at this time. I do believe this is reasonable. Recommend he follow-up with his spinner box Dr. Aguilar. He was in agreement this plan. Heart score is low at 3. I instructed the patient to follow up with their PCP in the next 1-3 days. I explained that the patient should return to the emergency department if they experience any worsening symptoms. Strict return precautions were discussed with the patient. The patient expressed understanding of these instructions. I answered all questions that the patient had. The patient was discharged home in good condition with their prescriptions and follow up information. Undiagnosed new problem with uncertain prognosis? @ -No Drug Therapy requiring intensive monitoring for toxicity (Heparin, Nitro, Insulin, Cardizem)? @ -No Were any procedures done? @ -No Diagnosis/symptom? @ -Chest pain Acute, or Chronic, or Acute on Chronic? @ -Acute Uncomplicated (without systemic symptoms) or Complicated (systemic symptoms)? @ -Uncomplicated Side effects of treatment? @ -None Exacerbation, Progression, or Severe Exacerbation] @ -No Poses a threat to life or bodily function? @ -Unlikely at this time - Lab Data Result diagrams: 10/21/24 23:04 10/21/24 23:04 Lab Results 10/21/24 10/21/24 10/21/24 Range/Units 23:04 23:04 23:04 WBC 10.20 H (4.50-10.00) 10*3/uL RBC 5.27 (4.40-5.60) 10*6/uL Hgb 15.5 (13.0-17.0) g/dL Hct 44.6 (39.6-50.0) % MCV 84.6 (80.0-97.0) fL MCH 29.4 (27.0-32.0) pg MCHC 34.8 (32.0-37.0) g/dL Plt Count 213 (140-440) 10*3/uL MPV 8.6 L (9.5-12.2) fL Immature Gran % (Auto) 1.1 % Neutrophils % 68.9 % Lymphocytes % 16.0 % Monocytes % 11.0 % Eosinophils % 2.1 % Basophils % 0.9 % Immature Gran # 0.11 H (0.00-0.04) 10*3/uL Neutrophils # 7.04 (1.80-7.70) 10*3/uL Lymphocytes # 1.63 (0.90-5.00) 10*3/uL Monocytes # 1.12 H (0.20-1.00) 10*3/uL Eosinophils # 0.21 (0.04-0.35) 10*3/uL Basophils # 0.09 (0.00-0.10) 10*3/uL PT 10.7 (10.0-12.5) sec INR 1.0 (<1.2) APTT 23.6 (22.0-30.0) sec Sodium 136 L (137-145) mmol/L Potassium 4.1 (3.5-5.1) mmol/L Chloride 103 (98-107) mmol/L Carbon Dioxide 22 (22-30) mmol/L Anion Gap 11 mmol/L BUN 23 H (9-20) mg/dL Creatinine 0.75 (0.66-1.25) mg/dL Est GFR (CKD-EPI)AfAm >90 (>60 ml/min/1.73 sqM) Est GFR (CKD-EPI)NonAf >90 (>60 ml/min/1.73 sqM) Glucose 101 H (74-99) mg/dL Calcium 9.2 (8.4-10.2) mg/dL Magnesium 1.9 (1.6-2.3) mg/dL Total Bilirubin 0.5 (0.2-1.3) mg/dL AST 19 (17-59) U/L ALT 13 (4-49) U/L Alkaline Phosphatase 81 (38-126) U/L Troponin I (0.000-0.034) ng/mL Total Protein 6.4 (6.3-8.2) g/dL Albumin 3.9 (3.5-5.0) g/dL 10/21/24 10/22/24 Range/Units 23:04 01:27 WBC (4.50-10.00) 10*3/uL RBC (4.40-5.60) 10*6/uL Hgb (13.0-17.0) g/dL Hct (39.6-50.0) % MCV (80.0-97.0) fL MCH (27.0-32.0) pg MCHC (32.0-37.0) g/dL Plt Count (140-440) 10*3/uL MPV (9.5-12.2) fL Immature Gran % (Auto) % Neutrophils % % Lymphocytes % % Monocytes % % Eosinophils % % Basophils % % Immature Gran # (0.00-0.04) 10*3/uL Neutrophils # (1.80-7.70) 10*3/uL Lymphocytes # (0.90-5.00) 10*3/uL Monocytes # (0.20-1.00) 10*3/uL Eosinophils # (0.04-0.35) 10*3/uL Basophils # (0.00-0.10) 10*3/uL PT (10.0-12.5) sec INR (<1.2) APTT (22.0-30.0) sec Sodium (137-145) mmol/L Potassium (3.5-5.1) mmol/L Chloride (98-107) mmol/L Carbon Dioxide (22-30) mmol/L Anion Gap mmol/L BUN (9-20) mg/dL Creatinine (0.66-1.25) mg/dL Est GFR (CKD-EPI)AfAm (>60 ml/min/1.73 sqM) Est GFR (CKD-EPI)NonAf (>60 ml/min/1.73 sqM) Glucose (74-99) mg/dL Calcium (8.4-10.2) mg/dL Magnesium (1.6-2.3) mg/dL Total Bilirubin (0.2-1.3) mg/dL AST (17-59) U/L ALT (4-49) U/L Alkaline Phosphatase (38-126) U/L Troponin I <0.012 <0.012 (0.000-0.034) ng/mL Total Protein (6.3-8.2) g/dL Albumin (3.5-5.0) g/dL - EKG Data -: EKG Interpreted by Me EKG Comments: 12-lead Electrocardiogram Interpretation Note EKG was reviewed and interpreted by myself. 12-lead ECG performed at 2253 is interpreted by me as revealing normal sinus rhythm at a rate of 60 beats per minute. [place] is normal. [place] interval is 170 ms, QRS duration is 105 ms, QTc is 388 ms.. There were no ST or T wave abnormalities to suggest myocardial ischemia or injury. R wave progression across the precordium was satisfactory. By my interpretation this EKG is non-diagnostic for acute ischemia. 12-lead Electrocardiogram Interpretation Note EKG was reviewed and interpreted by myself. 12-lead ECG performed at 2329 is interpreted by me as revealing normal sinus rhythm at a rate of 55 beats per minute. [place] is normal. Parable is 165 ms, QRS ration is 101 ms, QTc is 376 ms.. There were no ST or T wave abnormalities to suggest myocardial ischemia or injury. R wave progression across the precordium was satisfactory. By my interpretation this EKG is non-diagnostic for acute ischemia. Disposition Clinical Impression: Chest pain Disposition: HOME SELF-CARE Condition: Good Instructions (If sedation given, give patient instructions): Chest Pain (ED) Is patient prescribed a controlled substance at d/c from ED?: No Referrals: Yonas Hill MD [Primary Care Provider] - 1-2 days Thaddeus Wright MD [STAFF PHYSICIAN] - 1-2 days Time of Disposition: 02:23
[2024-10-21 23:58] LABS: Basophils # (A) 0.09 10*3/uL (0.00-0.10); Basophils % (A) 0.9 %; Eosinophils # (A) 0.21 10*3/uL (0.04-0.35); Eosinophils % (A) 2.1 %; HCT 44.6 % (39.6-50.0); HGB 15.5 g/dL (13.0-17.0); Lymphocytes # (A) 1.63 10*3/uL (0.90-5.00); Lymphocytes % (A) 16.0 %; MCH 29.4 pg (27.0-32.0); MCHC 34.8 g/dL (32.0-37.0); MCV 84.6 fL (80.0-97.0); Monocytes # (A) 1.12 10*3/uL (0.20-1.00); Monocytes % (A) 11.0 %; Neutrophils # (A) 7.04 10*3/uL (1.80-7.70); Neutrophils % (A) 68.9 %; Platelet Count 213 10*3/uL (140-440); RBC 5.27 10*6/uL (4.40-5.60); RDW 13.2 % (11.5-14.5); WBC 10.20 10*3/uL (4.50-10.00)
[2024-10-22 00:04] LABS: ALT 13 U/L (4-49); AST 19 U/L (17-59); African American GFR (CKD) >90 (>60 ml/min/1.73 sqM); Albumin 3.9 g/dL (3.5-5.0); Alkaline Phosphatase 81 U/L (38-126); Anion Gap 11 mmol/L; Blood Urea Nitrogen 23 mg/dL (9-20); Calcium 9.2 mg/dL (8.4-10.2); Carbon Dioxide 22 mmol/L (22-30); Chloride 103 mmol/L (98-107); Glucose 101 mg/dL (74-99); Magnesium 1.9 mg/dL (1.6-2.3); Non-African American GFR(CKD) >90 (>60 ml/min/1.73 sqM); Potassium 4.1 mmol/L (3.5-5.1); Sodium 136 mmol/L (137-145); Total Protein 6.4 g/dL (6.3-8.2)
[2024-10-22 00:15] LABS: INR 1.0 (<1.2); Partial Thromboplastin Time 23.6 sec (22.0-30.0); Prothrombin Time 10.7 sec (10.0-12.5)
--- NOTE | 2024-10-22 00:29 | XR ---
EXAM: XR Chest, 2 Views CLINICAL HISTORY: ITS.REASON XR Reason: Chest Pain TECHNIQUE: Frontal and lateral views of the chest. COMPARISON: No relevant prior studies available. FINDINGS: Lungs: Unremarkable. No consolidation. Pleural space: Unremarkable. No pneumothorax. Heart: Unremarkable. No cardiomegaly. Mediastinum: Unremarkable. Bones/joints: Unremarkable. IMPRESSION: Normal chest x-rays.
[2024-10-22 02:31] VITALS: BP 126/72; PULSE 72; RESP 16; TEMP 97.6
== END 2024-10-22 02:28 | disposition home or self-care (01) ==
LOC: EC 22:40
DX: R07.9 Chest pain, unspecified (principal); Z87.891 Personal history of nicotine dependence
CPT/HCPCS: 36415; 71046; 80053; 83735; 84484; 85025; 85610; 85730; 93005; 99285